=== PATIENT | female | born 1980 | race Two or more races ===

== ENCOUNTER 2023-05-17 21:56 | Emergency (ER) | payer OTHER ==
[~2023-05-17] VITALS: Ht 154.9 cm; Wt 86.2 kg
[2023-05-18] MEDS ORDERED: RINGERS SOLUTION,LACTATED 1,000 ML IV STA (02:10)
[2023-05-18] MEDS ORDERED: PROMETHAZINE HCL 50 MG/ML AMPUL IM STA (02:11)
[2023-05-18] MEDS ORDERED: MEPERIDINE HCL/PF 50 MG/ML VIAL IM STA ×2 (02:11→10:43)
[2023-05-18] MEDS ORDERED: HYOSCYAMINE SULFATE 0.125 MG TAB.SUBL SL STA (02:12)
[2023-05-18] MEDS ORDERED: KETOROLAC TROMETHAMINE 30 MG VIAL IV STA (02:12)
[2023-05-18 02:41] LABS: HEMATOCRIT 31.2 % (36.0-45.00); HEMOGLOBIN 9.8 g/dL (12.0-15.00); MEAN CELL VOLUME 70.4 fL (80.00-100.00); MEAN CORPUSCULAR HEMOGLOBIN 22.1 pg (27.00-32.0); MEAN CORPUSCULAR HGB CONC 31.3 g/dl (32.0-36.0); PLATELET COUNT 405 K/uL (150-450); RED BLOOD COUNT 4.43 M/uL (4.00-6.00)
[2023-05-18 03:07] LABS: ALBUMIN 3.2 gm/dL (3.4-5.0); BILIRUBIN TOTAL 0.27 mg/dL (0.3-1.2); CALCIUM 8.4 mg/dL (8.5-10.1); CREATININE SERUM 0.71 mg/dL (0.55-1.02); GFR 90.72; GLOBULINA 4.7 G/DL (2.4-3.5); TOTAL PROTEIN 7.9 gm/dL (6.4-8.2)
[2023-05-18 03:08] LABS: PH,URINE 5.5 (5.0-8.0); URINE APPEARANCE Cloudy; URINE BILIRRUBIN Small (NEGATIVE); URINE BLOOD Negative; URINE COLOR Dark Yellow; URINE GLUCOSE Negative (NEGATIVE); URINE LEUKOCYTE Trace; URINE NITRATE Negative
[2023-05-18 03:11] LABS: URINE BACTERIA 20.1 uL (0.0-1933); URINE EPITHELIAL CELLS 76.9 uL (0.0-38.8); URINE RBC 17.5 uL (0.0-20.8); URINE WBC 42.9 uL (0.0-23.2)
[2023-05-18 03:14] LABS: POTASSIUM 2.74 mEq/L (3.5-5.1)
[2023-05-18 03:15] LABS: INR 1.17; PARTIAL THROMBOPLASTIN TIME 25.6 SECONDS (22.0-34.0); PROTHROMBIN TIME 12.1 SECONDS (9.0-11.5)
[2023-05-18 03:19] LABS: URINE PROTEIN 100 (NEGATIVE)
[2023-05-18 03:36] LABS: URINE MUCUS HEAVY
[2023-05-18] MEDS ORDERED: POTASSIUM CHLORIDE/D5-0.9%NACL 20 MEQ/1,000 ML PIGGYBAG IV STA (03:42)
[2023-05-18] MEDS ORDERED: MEPERIDINE HCL/PF 25 MG/ML VIAL IV STA (08:16)
[2023-05-18] MEDS ORDERED: CEFTRIAXONE SODIUM 1,000 MG VIAL IV STA (10:45)
[2023-05-18] MEDS ORDERED: POTASSIUM CHLORIDE/D5-0.9%NACL 40 MEQ/1,000 ML PIGGYBAG IV STA (12:16)
[2023-05-18 13:02] LABS: ALBUMIN 3.1 gm/dL (3.4-5.0); BILIRUBIN TOTAL 0.23 mg/dL (0.3-1.2); CALCIUM 8.3 mg/dL (8.5-10.1); CREATININE SERUM 0.6 mg/dL (0.55-1.02); GFR 110.17; GLOBULINA 4.7 G/DL (2.4-3.5); POTASSIUM 3.37 mEq/L (3.5-5.1); TOTAL PROTEIN 7.8 gm/dL (6.4-8.2)
== END 2023-05-18 15:51 | disposition designated cancer center or children's hospital (05) ==
LOC: ER 21:56
PROVIDERS: General Practice
DX: K56.609 Unspecified intestinal obstruction, unspecified as to partial versus complete obstruction (principal); R10.9 Unspecified abdominal pain